=== PATIENT | male | born 1995 | race Caucasian/White ===

== ENCOUNTER 2025-03-24 17:22 | Emergency (ER) | payer OTHER ==
[~2025-03-24] VITALS: Ht 198.1 cm; Wt 101.6 kg
[2025-03-24] MEDS ORDERED: ondansetron HCL 4 MG/2 ML VIAL IV PRN (17:45)
[2025-03-24] MEDS ORDERED: HYDROmorphone HCL 1 MG/ML SYR IV ONE (17:45)
[2025-03-24] MEDS ORDERED: HYDROCODON-ACE1 EA10 PO (18:03)
[2025-03-24 18:28] VITALS: BP 136/97
== END 2025-03-24 18:28 | disposition home or self-care (01) ==
LOC: ED 17:22
DX: S82.842A Displaced bimalleolar fracture of left lower leg, initial encounter for closed fracture (principal); W01.0XXA Fall on same level from slipping, tripping and stumbling without subsequent striking against object, initial encounter
CPT/HCPCS: 29515; 73610; 99283-25; J1171; J2405